=== PATIENT | female | born 1975 | race Caucasian/White ===

== ENCOUNTER → 2022-11-07 09:06 | Outpatient (BNVA) | payer OTHER, SELFPAY | PROVIDERS: PCP Internal Medicine; Visit Provider Physician Assistant | DX: Z13.89 Encounter for screening for other disorder (principal) ==

== ENCOUNTER → 2022-11-15 08:42 | Outpatient (BNVA) | payer OTHER, SELFPAY | PROVIDERS: PCP Internal Medicine; Visit Provider Surgery | DX: Z13.89 Encounter for screening for other disorder (principal) ==

== ENCOUNTER 2022-11-16 08:17 | Outpatient (REF) | payer OTHER, SELFPAY ==
--- NOTE | ~2022-11-16 | XR_ITS ---
EXAMINATION: XR CHEST CLINICAL INFORMATION: Obesity. COMPARISON: Preop TECHNIQUE: 2 views of the chest were obtained. FINDINGS: No significant abnormality is noted involving the heart, lungs, mediastinum, bony thorax or soft tissues. XR/XR chest 2V IMPRESSION: Unremarkable chest examination.
--- NOTE | 2022-11-16 08:30 | ECG_ITS ---
Test Reason : obesity Blood Pressure : / mmHG Vent. Rate : 078 BPM Atrial Rate : 078 BPM P-R Int : 172 ms QRS Dur : 082 ms QT Int : 360 ms P-R-T Axes : 022 046 030 degrees QTc Int : 410 ms Normal sinus rhythm Low voltage QRS -- can be normal variant or due to cardiopulmonary disease, pericardial or pleural effusion, or obesity Referred By: Jermaine Satnos Electronically Signed By:MARTITA MARTINES
[2022-11-16 08:41] LABS: MANUAL DIFF FLAG NO
[2022-11-16 09:56] LABS: Basophils Percent Auto 0.6 % (0-2); Eosinophils Percent Auto 0.2 % (0-4); Hematocrit 43.8 % (37.0-47.0); Imm Gran Abs Auto 0.01 X10*3/uL (0.00-0.03); Imm Gran Pct Auto 0.2 % (0.0-0.4); Lymphocytes Absolute Auto 1.4 X10*3/uL (1.2-4.9); Lymphocytes Percent Auto 20.6 % (20-40); Mean Corpuscular Volume 84.6 fL (80.0-98.0); Mean Platelet Volume 9.6 fL (9.4-12.3); Monocytes Absolute Auto 0.6 X10*3/uL (0.1-1.2); Monocytes Percent Auto 8.7 % (2-11); Neutrophils Absolute Auto 4.6 x10*3/uL (2.0-8.3); Neutrophils Percent Auto 69.7 % (45-73); Platelet Count 368 X10*3/uL (160-400); Red Blood Count 5.18 X10*6/uL (4.20-5.50); Red Cell Distribution Width 14.4 % (11.0-16.0); White Blood Count 6.6 X10*3/uL (4.8-10.8)
[2022-11-16 10:04] LABS: Estimated Average Glucose 108 mg/dL; Hemoglobin A1c % 5.4 %
[2022-11-16 11:32] LABS: Ferritin 92 ng/mL (10-250); Folate 11.9 ng/mL (> or = 4.0); Vitamin B12 424 pg/mL (200-900); Vitamin D 25-OH Total 21.8 ng/mL (>30)
[2022-11-16 11:49] LABS: Alanine Aminotransferase 30 U/L (0-31); Albumin Level 3.6 g/dL (3.5-5.0); Alkaline Phosphatase 73 U/L (39-117); Anion Gap 11 (12-20); Aspartate Amino Transferase 24 U/L (5-31); Bilirubin Total 0.9 mg/dL (0.0-1.0); Blood Urea Nitrogen 7 mg/dL (9-16); C Reactive Protein 0.58 mg/dL (< or = 0.50); Calcium 8.5 mg/dL (8.4-10.2); Carbon Dioxide 28 mmol/L (22-29); Chloride 106 mmol/L (96-108); Cholesterol 238 mg/dL; Estimated Glomerular Filt Rate > 60; Glucose Random 91 mg/dL (60-115); HDL Cholesterol 62 mg/dL; Iron 94 mcg/dL (30-160); LDL Cholesterol Calculated 157 mg/dl; Percent Iron Saturation 32 % (15-50); Potassium 4.1 mmol/L (3.3-5.1); Sodium 141 mmol/L (135-145); Total Iron Binding Capacity 291 mcg/dL (228-428); Total Protein 6.4 g/dL (6.5-8.0); Triglycerides 98 mg/dL; Unsaturated Iron Binding 197 ug/dL
[2022-11-16 11:56] LABS: Insulin 6 uU/mL (2-29)
[2022-11-20 15:28] LABS: Zinc 72 mcg/dL (60-130)
[2022-11-20 15:53] LABS: Calcium (PTHI) 9.1 mg/dL (8.6-10.2); PTHI 35 pg/mL (16-77)
[2022-11-21 05:14] LABS: Vitamin A 49 mcg/dL (38-98)
[2022-11-23 16:44] LABS: Vitamin B1 9 nmol/L (8-30)
== END 2022-11-16 08:18 | disposition home or self-care (01) ==
LOC: HO.XRAY 08:17
PROVIDERS: Surgery; PCP Internal Medicine; Visit Provider Physician Assistant Surgical
DX: E66.9 Obesity, unspecified (principal); I10 Essential (primary) hypertension; E78.5 Hyperlipidemia, unspecified; Z68.35 Body mass index [BMI] 35.0-35.9, adult
CPT/HCPCS: 36415; 71046; 80053; 80061; 82306; 82607; 82728; 82746; 83036; 83525; 83540; 83970; 84425; 84443; 84590; 84630; 85025; 86140; 93005; 93010; 99211

== ENCOUNTER 2022-11-16 17:36 | Outpatient (REF) | payer OTHER, SELFPAY ==
[2022-11-18 15:03] LABS: H Pylori Breath Test Negative (Negative)
== END 2022-11-16 17:37 | disposition home or self-care (01) ==
LOC: HO.LNP 17:36
PROVIDERS: Visit Provider Surgery
DX: E66.9 Obesity, unspecified (principal); I10 Essential (primary) hypertension; E78.5 Hyperlipidemia, unspecified; Z68.35 Body mass index [BMI] 35.0-35.9, adult; Z11.0 Encounter for screening for intestinal infectious diseases
CPT/HCPCS: 83013

== ENCOUNTER → 2022-12-04 13:14 | Outpatient (BNVA) | payer OTHER, SELFPAY | PROVIDERS: PCP Internal Medicine; Visit Provider Dietitian, Registered | DX: E66.9 Obesity, unspecified (principal) | CPT/HCPCS: 97802 ==

== ENCOUNTER → 2022-12-15 08:03 | Outpatient (BNVA) | payer OTHER, SELFPAY | PROVIDERS: PCP Internal Medicine; Visit Provider Surgery ==

== ENCOUNTER 2022-12-29 09:47 | Outpatient (REF) | payer OTHER, SELFPAY ==
--- NOTE | ~2022-12-29 | FL_ITS ---
EXAMINATION: FL FLUOROSCOPY UPPER GI WITH AIR CLINICAL INFORMATION: Obesity. COMPARISON: None available. TECHNIQUE: Air-contrast upper GI examination. FINDINGS: There is normal apposition of vocal cords while saying E. There is normal elevation of soft palate while saying candy. Patient swallowed thin and thick barium as well as half-inch diameter barium tablet without difficulty. No nasopharyngeal reflux or tracheal aspiration was identified. There is normal esophageal motility without evidence of persistent stricture or mucosal abnormality. No hiatal hernia was evident. No gastroesophageal reflux including with water siphon test was elicited. The stomach demonstrates normal distensibility without abnormal mass or ulceration. There was no delay in gastric emptying. The duodenal bulb and sweep appeared unremarkable. FLUOROSCOPY TIME: 1.3 minutes DOSE AREA PRODUCT: 13.107 Gy-cm2 (alvarez-centimeter squared) FL/FL upper GI w air IMPRESSION: Normal air-contrast upper GI examination.
--- NOTE | ~2022-12-29 | US_ITS ---
EXAMINATION: US COMPLETE ABDOMEN WITH LIVER ELASTOGRAPHY CLINICAL INFORMATION: Obesity. COMPARISON: None available. TECHNIQUE: Real-time imaging of the abdominal viscera. Noninvasive ultrasound liver fibrosis assessment is performed using Misael ElastPQ point quantification shear wave elastography (2D-SWE) with a C5-2 MHz transducer. Multiple elastography samples are obtained. FINDINGS: PANCREAS: Limited. The visualized pancreatic head and body are normal in appearance. The remainder of the pancreas is obscured from visualization by the overlying bowel gas. ABDOMINAL AORTA: The proximal, middle, and distal aortic segments are normal in caliber. INFERIOR VENA CAVA: Visualized portions are normal. LIVER: The liver demonstrates normal size, contour and generally increased echogenicity. No focal lesion or intrahepatic biliary duct dilatation. The right lobe measures 12.2 cm in length. The left lobe measures 8.9 cm in length. Portal flow is towards the liver (hepatopetal). Shear wave liver elastography median stiffness is 1.48 m/s (reference: normal median stiffness is 1.3 m/s or less). IQR/median stiffness to assess sampling precision is 0.05 (reference: good quality data set is IQR/median stiffness of 0.15 or less). GALLBLADDER: Normal. The gallbladder is physiologically distended without evidence of stones, sludge, polyps, wall thickening or pericholecystic fluid. COMMON BILE DUCT: Normal in caliber measuring 0.3 cm in diameter. RIGHT KIDNEY: Normal. No hydronephrosis. No renal calculi or focal parenchymal lesions. The kidney measures 11.2 cm in maximum dimension. LEFT KIDNEY: Normal. No hydronephrosis. No renal calculi or focal parenchymal lesions. The kidney measures 11.6 cm in maximum dimension. SPLEEN: Normal. The spleen measures 9.5 cm in maximum dimension. FREE FLUID: None. US/US abdomen comp w elastography IMPRESSION: 1. There is generalized increase in hepatic echotexture, consistent with fatty infiltration or hepatocellular disease. Please correlate clinically. No focal hepatic mass or intrahepatic biliary dilatation is seen. 2. Liver elastography: In the absence of other known clinical signs, measurements rule out compensated advanced chronic liver disease. If there are known clinical signs, further testing may be needed for confirmation. REFERENCE: Society of Radiologists in Ultrasound Liver Stiffness Thresholds (2020): LIVER STIFFNESS THRESHOLDS: *Liver Stiffness equal or less than 1.3 m/s: High probability of being normal. *Liver Stiffness less than 1.7 m/s: In the absence of other known clinical signs, rules out compensated advanced chronic liver disease. *Liver Stiffness 1.7-2.1 m/s: Suggestive of compensated advanced chronic liver disease but need further test for confirmation. *Liver Stiffness over 2.1 m/s: Rules in compensated advanced chronic liver disease. *Liver Stiffness over 2.4 m/s: Suggestive of clinically significant portal hypertension. QUALITY OF DATA SET: *IQR/Median value equal or less than 0.15 implies a quality data set. *IQR/Median value over 0.15 implies a poor quality data set. SIGNIFICANT CHANGE FROM PRIOR EXAM: Significant change if liver stiffness measurement is 10% or greater from prior exam. OTHER CONSIDERATIONS: The stage of liver fibrosis may be overestimated in the setting of acute hepatitis, liver inflammation, elevated liver function tests, hepatic vascular congestion, obstructive cholestasis, non-fasting state, and infiltrative diseases such as amyloidosis and lymphoma. In some patients with NAFLD, the liver stiffness thresholds for compensated advanced chronic liver disease may be lower. In causes other than viral hepatitis and NAFLD, liver stiffness thresholds are not well established.
== END 2022-12-29 09:48 | disposition home or self-care (01) ==
LOC: HO.US 09:47
PROVIDERS: PCP Internal Medicine; Visit Provider Surgery
DX: Z01.818 Encounter for other preprocedural examination (principal); E66.9 Obesity, unspecified; Z68.35 Body mass index [BMI] 35.0-35.9, adult; I10 Essential (primary) hypertension; E78.5 Hyperlipidemia, unspecified
CPT/HCPCS: 74246; 76705; 76981

== ENCOUNTER → 2023-01-10 08:29 | Outpatient (BNVA) | payer OTHER, SELFPAY | PROVIDERS: PCP Internal Medicine; Visit Provider Surgery ==

== ENCOUNTER → 2023-02-05 08:17 | Outpatient (BNVA) | payer OTHER, SELFPAY | PROVIDERS: PCP Internal Medicine; Visit Provider Surgery ==

== ENCOUNTER → 2023-03-13 16:20 | Outpatient (BNVA) | payer OTHER, SELFPAY | PROVIDERS: PCP Internal Medicine; Visit Provider Physician Assistant Surgical ==

== ENCOUNTER 2023-04-16 15:33 | Outpatient (AMB) | payer OTHER, SELFPAY ==
--- NOTE | 2023-04-16 15:09 | A.OFFVIS_ITS ---
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 Required: No Allergies guaifenesin [From Robitussin] Allergy (Mild, Verified 11/15/22 11:49) Rash Medication List - Last Reconciled 04/16/23 by JANELLE Burrell amlodipine 2.5 mg PO DAILY cetirizine (All Day Allergy (cetirizine)) 10 mg PO DAILY PRN cholecalciferol (vitamin D3) 125 mcg PO DAILY 90 days docusate sodium 100 mg PO DAILY epinephrine 0.3 mg IM Q10M PRN fluticasone furoate 50 mcg/actuation inhalation gabapentin 100 mg PO BEDTIME lactulose 20 grams PO BID nystatin-triamcinolone appl topical thiamine HCl (vitamin B1) 100 mg PO DAILY HPI HPI Comments History of Present Illness Details The patient is a pleasant 47 year old female who returns to the clinic for pre-operative surgical weight loss management. They were last seen in the office on 03/13/23, recorded weight at that time was 178 pounds, with a BMI of 34.8. Today's weight is 180 pounds and BMI is 35.2. There has been a weight loss of 1 pounds since initiating the surgical weight loss program on 11/15/22. Pre op work up completed as follows: SWL classes:? 04/24 BH appts: cleared 12/05/22 ? ? RD appts: cleared 12/04/22 Labs: -low D, [id number] H. pylori: 11/16/22-neg CXR: 11/16/22-nad EK11/16/22-low voltage, nsr ABD U/S: 12/29/22-fatty liver UGI: 12/29/22-normal The patient reports she is following the meal plan. She is drinking margaritas 1 drink 2 x per week. Wakes at 730 am, sleep at 10 pm, meal at 730 pm Current meal plan includes: 3 Orgain shakes 1 scoop each in 8 oz unsweetened almond milk First shake 830 am-1030 am Second shake 1230 pm-230 pm Third shake 430 pm-630 pm Meal at 730 pm - 8 forks of protein and 8 forks of vegetables or salad 1 cup mixed fresh berries or fruit at 9 pm if you wish (strawberry, blueberry, blackberry, raspberry, an apple, or peach or kiwi or pear) Drinking 64-80 oz of water Current exercise plan includes: Treadmill at home, 4 x per week, speed 3 incl 4-10, 300 allison, PFSH Medical History (Updated 01/25/23 @ 19:51 by Jermaine Santos MD) Anxiety Back pain Depression Hip pain Hyperlipidemia Hypertension Surgical History (Updated 11/07/22 @ 10:21 by Stacey Landry CMA) Hx of carpal tunnel repair Hx of hysterectomy Family History (Updated 11/07/22 @ 10:22 by Stacey Landry CMA) Mother Hypertension High cholesterol Father No problems noted. Social History (Updated 11/07/22 @ 10:19 by Stacey Landry CMA) Alcohol intake: current Alcohol intake frequency: holidays/special occasions only Patient Tobacco Use Status: Never used Tobacco Assessment & Plan Assessment & Plan (1) Obesity: Code(s): E66.9 - Obesity, unspecified Plan: Unclear etiology as she states she is following the plan except for an indiscretion which has been limited. Sh is having alcoholic beverages (2 per week-margaritas) Will have her come in to the office to get weighed on our scale. RTC 3 weeks Telehealth Telehealth Location of provider rendering services: practice address Location of patient: other Patient Identification confirmed using: Name, : Yes Telehealth method: voice only Patient verbally consented to treatment: Yes Patient verbally consented to billing insurance company: Yes Patient informed of any privacy concerns related to visit: Yes Minutes spent on Phone/Video with Pt.: 15 Coding Level of Care Code Tele Est Pt Level 3 (66600) Diagnoses Obesity E66.9 Time Spent (min) 20
[2023-04-16 15:13] VITALS: BMI 35.2
== END 2023-04-16 15:38 | disposition home or self-care (01) ==
LOC: HO.HBS 15:33
PROVIDERS: PCP Internal Medicine; Visit Provider Physician Assistant Surgical
DX: E66.9 Obesity, unspecified (principal); Z68.35 Body mass index [BMI] 35.0-35.9, adult
CPT/HCPCS: 99213

== ENCOUNTER → 2023-04-16 15:33 | Outpatient (BNVA) | payer OTHER, SELFPAY | PROVIDERS: PCP Internal Medicine; Visit Provider Physician Assistant Surgical ==